=== PATIENT | female | born 2000 | race Caucasian/White ===

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

== ENCOUNTER 2020-03-21 11:30 | Emergency (ER) | payer OTHER ==
[~2020-03-21] VITALS: Ht 157.5 cm; Wt 59.1 kg
[~2020-03-21 11:30] MED LIST changes: +ANUSOL-HC SUPPO25 MG RC
[2020-03-21 12:11] LABS: BASO # 0.1 (0.0-0.2); BASO % 1.3 % (0.0-2.0); EOS # 0.3 (0.0-0.7); EOS % 3.2 % (0-4.0); GRAN # 6.8 (1.4-6.5); GRAN % 66.8 % (42.2-75.2); HEMATOCRIT 42.5 % (35.0-45.0); LYMPH # 2.1 (1.2-3.4); LYMPH % 20.8 % (20.0-51.0); MEAN CELL VOLUME 83 fl (80.0-95.0); MEAN CORPUSCULAR HEMOGLOBIN 27 pg (26.0-32.0); MEAN CORPUSCULAR HGB CONC 33 g/dl (33.0-37.0); MEAN PLATELET VOLUME 10.3 fl (7.4-10.4); MONO # 0.8 (0.1-0.6); MONO % 7.6 % (1.7-9.3); PLATELET COUNT 472 K/mm3 (130-400); RED BLOOD COUNT 5.14 M/mm3 (4.10-5.30); REDCELL DISTRIBUTION WIDTH-CV 14.6 % (11.5-14.5)
[2020-03-21 12:23] LABS: ALANINE AMINOTRANSFERASE 60 U/L (4-34); ALKALINE PHOSPHATASE 81 U/L (50-136); ANION GAP 13 mmol/L (7-16); AST,SGOT 51 U/L (15-37); BILIRUBIN,TOTAL 0.4 mg/dL (0.0-1.0); BLOOD UREA NITROGEN 9 mg/dL (7-17); CALCIUM 9.6 mg/dL (8.4-10.2); CARBON DIOXIDE 22 mmol/L (22-30); CHLORIDE 105 mmol/L (98-107); CREATININE, serum 0.79 (0.52-1.25); GLUCOSE 107 mg/dL (74-106); LIPASE 68 U/L (23-300); POTASSIUM 4.1 mmol/L (3.4-5.0); SODIUM 140 mmol/L (137-145); TOTAL PROTEIN 9.1 gm/dL (6.4-8.2)
[2020-03-21 12:28] LABS: C-REACTIVE PROTEIN < 0.5 mg/dL (0.0-0.9)
[2020-03-21 13:27] VITALS: BP 120/96; PULSE 80; TEMP 97.5
[2020-03-21] MEDS ORDERED: ZOFRAN ODT4 MG PO (13:34)
== END 2020-03-21 13:54 | disposition home or self-care (01) ==
LOC: COL.ER 11:30
PROVIDERS: Emergency Medicine
DX: R11.2 Nausea with vomiting, unspecified (principal); R19.7 Diarrhea, unspecified; G40.909 Epilepsy, unspecified, not intractable, without status epilepticus
CPT/HCPCS: J2405; J2550; J7030

== ENCOUNTER 2020-10-18 01:38 | Emergency (ER) | payer OTHER ==
[~2020-10-18] VITALS: Ht 152.4 cm; Wt 55.9 kg
[~2020-10-18 01:38] MED LIST changes: +ZOFRAN ODT4 MG PO
[2020-10-18 01:43] VITALS: TEMP 97.7
[2020-10-18 02:03] LABS: BASO # 0.1 (0.0-0.2); BASO % 0.9 % (0.0-2.0); EOS # 0.2 (0.0-0.7); EOS % 2.9 % (0-4.0); GRAN # 3.4 (1.4-6.5); GRAN % 45.5 % (42.2-75.2); HEMATOCRIT 39.6 % (35.0-45.0); HEMOGLOBIN 12.9 g/dl (12.0-15.0); LYMPH # 3.2 (1.2-3.4); LYMPH % 42.1 % (20.0-51.0); MEAN CELL VOLUME 86 fl (80.0-95.0); MEAN CORPUSCULAR HEMOGLOBIN 28 pg (26.0-32.0); MEAN CORPUSCULAR HGB CONC 33 g/dl (33.0-37.0); MEAN PLATELET VOLUME 10.2 fl (7.4-10.4); MONO # 0.6 (0.1-0.6); MONO % 8.3 % (1.7-9.3); PLATELET COUNT 340 K/mm3 (130-400); RED BLOOD COUNT 4.61 M/mm3 (4.10-5.30); REDCELL DISTRIBUTION WIDTH-CV 14.1 % (11.5-14.5)
[2020-10-18 02:08] LABS: ALBUMIN 4.7 gm/dL (3.5-5.0); BILIRUBIN,TOTAL 0.7 mg/dL (0.0-1.0); CALCIUM 9.4 mg/dL (8.4-10.2); CREATININE, serum 0.65 (0.52-1.25); POTASSIUM 3.8 mmol/L (3.4-5.0); TOTAL PROTEIN 8.3 gm/dL (6.4-8.2)
[2020-10-18] MEDS ORDERED: PROTONIX20 MG PO (02:49)
[2020-10-18] MEDS ORDERED: CARAFATE 1GM1 G PO (02:49)
[2020-10-18] MEDS ORDERED: ZOFRAN ODT4 MG PO (02:49)
[2020-10-18 02:59] LABS: COLLECTION METHOD CLEAN CATCH
[2020-10-18 03:06] LABS: MUCOUS Present /lpf; PH 6 (5-8); SQUAMOUS EPITHELIAL 0-2 /hpf; URINE APPEARANCE Clear; URINE BACTERIA Rare /hpf; URINE BILIRUBIN Negative (NEGATIVE); URINE BLOOD 1+ (NEGATIVE); URINE COLOR Yellow; URINE GLUCOSE Negative (NEGATIVE); URINE KETONE Negative (NEGATIVE); URINE LEUKOCYTE ESTERASE Negative (NEGATIVE); URINE NITRATE Negative (NEGATIVE); URINE PROTEIN(semi-quant) Negative (NEGATIVE); URINE RBC 0-2 /hpf; URINE UROBILINOGEN Negative (NEGATIVE)
[2020-10-18 03:24] VITALS: BP 124/75; PULSE 79
== END 2020-10-18 03:24 | disposition home or self-care (01) ==
LOC: COL.ER 01:38
PROVIDERS: Emergency Medicine
DX: U07.1 COVID-19 (principal); K92.0 Hematemesis; R10.10 Upper abdominal pain, unspecified; R19.7 Diarrhea, unspecified; G40.909 Epilepsy, unspecified, not intractable, without status epilepticus; Z79.899 Other long term (current) drug therapy
CPT/HCPCS: J1170; J2405; J7030

== ENCOUNTER 2021-02-05 09:42 | Emergency (ER) | payer OTHER ==
[~2021-02-05] VITALS: Ht 154.9 cm; Wt 57.3 kg
[~2021-02-05 09:42] MED LIST changes: +CARAFATE 1GM1 G PO; +PROTONIX20 MG PO
[2021-02-05 09:51] VITALS: BP 110/68; TEMP 98.3
[2021-02-05] MEDS ORDERED: ZOFRAN ODT4 MG PO (11:12)
[2021-02-05 11:57] VITALS: PULSE 71
== END 2021-02-05 11:56 | disposition home or self-care (01) ==
LOC: COL.ER 09:42
DX: U07.1 COVID-19 (principal); K92.0 Hematemesis; K21.9 Gastro-esophageal reflux disease without esophagitis; F32.A Depression, unspecified; Z79.899 Other long term (current) drug therapy; Z86.69 Personal history of other diseases of the nervous system and sense organs
CPT/HCPCS: J2405; J7030

== ENCOUNTER 2021-04-03 06:11 | Day surgery (SDC) | payer SELFPAY ==
[~2021-04-03] VITALS: Ht 152.4 cm; Wt 57.3 kg
[2021-04-03 07:13] LABS: COLLECTION METHOD CLEAN CATCH
[2021-04-03] MEDS ORDERED: NEXPLANON68 MG ID (07:13)
[2021-04-03 07:16] LABS: BASO # 0.1 K/mm3 (0.0-0.2); BASO % 1.1 % (0.0-2.0); EOS # 0.4 K/mm3 (0.0-0.7); EOS % 5.6 % (0.0-4.0); GRAN # 2.7 K/mm3 (1.4-6.5); GRAN % 41.5 % (42.2-75.2); HEMATOCRIT 37.8 % (35.0-45.0); HEMOGLOBIN 12.7 g/dl (12.0-15.0); LYMPH # 2.7 K/mm3 (1.2-3.4); LYMPH % 41.2 % (20.0-51.0); MEAN CELL VOLUME 85 fl (80.0-95.0); MEAN CORPUSCULAR HEMOGLOBIN 29 pg (26-32); MEAN CORPUSCULAR HGB CONC 34 g/dl (33.0-37.0); MEAN PLATELET VOLUME 9.7 fl (7.4-10.4); MONO # 0.7 K/mm3 (0.1-0.6); MONO % 10.4 % (1.7-9.3); PLATELET COUNT 290 K/mm3 (130-400); RED BLOOD COUNT 4.44 M/mm3 (4.10-5.30); REDCELL DISTRIBUTION WIDTH-CV 14.8 % (11.5-14.5)
[2021-04-03 07:20] LABS: MUCOUS Present (NOT PRESENT); PH 5 (5-8); URINE APPEARANCE Hazy (CLEAR/HAZY); URINE BACTERIA Rare /hpf (NONE SEEN); URINE BILIRUBIN Negative (NEGATIVE); URINE BLOOD Negative (NEGATIVE); URINE COLOR Yellow (YELLOW); URINE GLUCOSE Negative (NEGATIVE); URINE KETONE Negative (NEGATIVE); URINE LEUKOCYTE ESTERASE Negative (NEGATIVE); URINE NITRATE Negative (NEGATIVE); URINE PROTEIN(semi-quant) Negative (NEGATIVE); URINE UROBILINOGEN Negative (NEGATIVE)
[2021-04-03 07:38] LABS: BILIRUBIN,TOTAL 0.6 mg/dL (0.2-1.2); CALCIUM 8.5 mg/dL (8.4-10.2); CREATININE, serum 0.69 mg/dL (0.57-1.11); POTASSIUM 3.3 mmol/L (3.5-4.5); TOTAL PROTEIN 7.1 gm/dL (6.2-8.1)
[2021-04-03 13:12] VITALS: BP 101/70; PULSE 64; TEMP 98.1
[2021-04-03] MEDS ORDERED: NORCO 325 MG-51 TAB PO (15:42)
[2021-04-03 16:30] VITALS: BP 115/95; PULSE 78; TEMP 98.8
--- NOTE | 2021-04-03 16:30 | NUR ---
1620 Report received from TAYLOR Martinez. Pt has already voided in the PACU. 1620 Pt returns from PACU via cart and RN assist to [facility]. Monitors on and alarms set. Call light within reach. Pt alert and oriented. Pt requests muffin and water. Pt denies any pain or nausea. Pt alert and oriented and says she's feeling "great." 1635 Pt taking food and drink well. No complications noted. 1715 Discharge instructions given to pt and pt's mom. All questions answered to their satisfaction. Handed to pt are a thank you card and discharge information. 1730 Pt transferred out of the hospital via wheelchair and this RN assist, to private vehicle driven by pt's mom.
[2021-04-03 16:36] VITALS: BP 108/77; PULSE 62
[2021-04-03 16:45] VITALS: BP 103/48; PULSE 89
[2021-04-03 17:00] VITALS: BP 120/83; PULSE 72
== END 2021-04-03 17:30 | disposition home or self-care (01) ==
LOC: COL.ER 06:11 → SDCO 09:36
PROVIDERS: Emergency Medicine
DX: K80.00 Calculus of gallbladder with acute cholecystitis without obstruction (principal)
CPT/HCPCS: J0696; J2250; J2270; J2405; J2704; J2765; J3010; J7030; J7120; Q9967

== ENCOUNTER 2021-04-10 00:53 | Emergency (ER) | payer OTHER ==
[~2021-04-10] VITALS: Ht 152.4 cm; Wt 51.8 kg
[~2021-04-10 00:53] MED LIST changes: +NEXPLANON68 MG ID
[2021-04-10 02:50] VITALS: BP 115/81; PULSE 77; TEMP 98.1
== END 2021-04-10 03:48 | disposition home or self-care (01) ==
LOC: COL.ER 00:53
DX: F41.9 Anxiety disorder, unspecified (principal); Z48.00 Encounter for change or removal of nonsurgical wound dressing; Z90.49 Acquired absence of other specified parts of digestive tract